=== PATIENT | female | born 1995 | race African-American/Black ===

== ENCOUNTER 2017-08-26 01:57 | Emergency (ER) | payer OTHER, MEDICAID ==
[~2017-08-26] VITALS: Ht 167.6 cm; Wt 78.0 kg
[2017-08-26 04:05] VITALS: BP 128/68
== END 2017-08-26 05:35 | disposition left against medical advice (07) ==
LOC: ER 02:21
DX: R07.9 Chest pain, unspecified (principal); Z53.21 Procedure and treatment not carried out due to patient leaving prior to being seen by health care provider